=== PATIENT | female | born 1970 | race Caucasian/White ===

== ENCOUNTER 2024-12-29 17:05 | Inpatient (IN) | payer OTHER ==
[~2024-12-29] VITALS: Ht 154.9 cm; Wt 81.6 kg
[2024-12-29 17:10] VITALS: TEMP 98.5
[2024-12-29] MEDS ORDERED: ONDANSETRON HCL/PF 4 MG/2 ML VIAL ONE ×2 (17:43→19:06)
[2024-12-29] MEDS ORDERED: MECLIZINE HCL 25 MG TABLET ONE (17:43)
[2024-12-29] MEDS ORDERED: LORAZEPAM INJ 2 MG/ML VIAL ONE (17:44)
[2024-12-29] MEDS: ONDANSETRON HCL/PF - ER 4 MG/2 ML VIAL IV ONE ×2 (17:45→19:15)
[2024-12-29] MEDS: IV NS 0.9% 1,000 ML BAG IV ONE (17:45)
[2024-12-29] MEDS: MECLIZINE HCL 25 MG TABLET PO ONE (17:45)
[2024-12-29 17:55] LABS: BASOPHILS % (AUTO) 0.4 % (0.0-2.0); EOSINOPHILS % (AUTO) 0.4 % (0.0-6.0); HEMATOCRIT 44 % (33-45); HEMOGLOBIN 15.5 g/dL (11.5-14.8); LYMPHOCYTES # (AUTO) 3.1 K/uL (0.8-4.8); LYMPHOCYTES % (AUTO) 28.8 % (20.0-44.0); MEAN CORPUSCULAR HEMOGLOBIN 32 PG (26.0-33.0); MEAN CORPUSCULAR HGB CONC 35 g/dl (31.0-36.0); MEAN CORPUSCULAR VOLUME 90 fL (82-100); MONOCYTES # (AUTO) 0.6 K/uL (0.1-1.30); MONOCYTES % (AUTO) 5.8 % (2.0-12.0); NEUTROPHILS # (AUTO) 7.1 K/uL (1.8-8.9); NEUTROPHILS % (AUTO) 64.6 % (43.0-81.0); PLATELET COUNT (AUTO) 319 K/uL (150-450); RED BLOOD CELL COUNT(AUTO) 4.94 MIL/uL (4.0-5.2); WHITE BLOOD COUNT (AUTO) 10.9 K/uL (4.3-11.0)
[2024-12-29] MEDS: LORAZEPAM INJ 2 MG/ML VIAL IV ONE (17:56)
[2024-12-29 18:14] LABS: CALCIUM, SERUM 9.7 mg/dL (8.5-10.1); CARBON DIOXIDE 22 mmol/L (21-32); CHLORIDE 104 mmol/L (98-107); CREATININE 0.6 mg/dL (0.6-1.3); GLUCOSE 171 mg/dL (74-106); POTASSIUM 3.6 mmol/L (3.5-5.1); SODIUM SERUM 139 mmol/L (136-145); UREA NITROGEN, BLOOD 13 mg/dL (7-18)
[2024-12-29 18:16] LABS: SERUM AMMONIA 26 umol/L (11-32)
[2024-12-29 18:18] LABS: ACETAMINOPHEN 0 ug/ml (10-30); ALCOHOL, BLOOD < 3 mg/dL (0-10); SALICYLATE 3.9 mg/dL (2.8-20.0)
[2024-12-29] MEDS ORDERED: IOHEXOL-350 100 ML VIAL IV ONE (18:32)
[2024-12-29] MEDS ORDERED: ONDANSETRON HCL/PF - ER 4 MG/2 ML VIAL IV ONE (19:30)
[2024-12-29] MEDS ORDERED: MECL-159 PO (21:10)
[2024-12-30 01:11] VITALS: O2SAT 99
[2024-12-30] MEDS ORDERED: MAG HYDROX/AL HYDROX/SIMETH 30 ML UDC PO PRN (02:00)
[2024-12-30] MEDS ORDERED: ACETAMINOPHEN 325 MG TABLET PO PRN (02:00)
[2024-12-30] MEDS ORDERED: Z GUARD REMEDY 4 OZ OINT TP PRN (02:00)
[2024-12-30] MEDS ORDERED: MAGNESIUM HYDROXIDE 30 ML UDC PO PRN (02:00)
[2024-12-30] MEDS: MECLIZINE HCL 25 MG TABLET PO SCH (02:47)
[2024-12-30 03:28] VITALS: BP_SYST 116; BP_SYST 120; BP_SYST 142; BP_DIAS 73; BP_DIAS 85; BP_DIAS 88
[2024-12-30] MEDS: IV NS 0.9% 1,000 ML IV PRN (05:48)
[2024-12-30] MEDS: MECLIZINE HCL 12.5 MG TABLET PO PRN (10:56)
[2024-12-30] MEDS: ONDANSETRON HCL/PF 4 MG/2 ML VIAL IVP PRN (10:56)
== END 2024-12-30 17:45 | disposition home or self-care (01) | DRG 149 ==
LOC: ER 17:10 → TELE1 23:55 → MEDSG1 12-30 09:31
PROVIDERS: ADMIT Nurse Practitioner Acute Care; ATTEND Nurse Practitioner Acute Care
DX: H81.10 Benign paroxysmal vertigo, unspecified ear (principal); E66.9 Obesity, unspecified; Z68.34 Body mass index [BMI] 34.0-34.9, adult
CPT/HCPCS: 36415; 70496-TC; 70498-TC; 71045-TC; 80048-TC; 82140-TC; 84443-TC; 84484-TC; 84702-TC; 85025-TC; 97112-TC; 97116-TC; 97530-TC; A4223; G0378; G0480; J2060; J2405; J7030; J8597; Q9967